=== PATIENT | female | born 1970 | race Caucasian/White ===

== ENCOUNTER 2018-09-04 18:11 | Emergency (ER) | payer SELFPAY ==
[~2018-09-04] VITALS: Ht 160 cm; Wt 72.7 kg
[~2018-09-04 18:11] MED LIST: NOCURR
[2018-09-04] MEDS ORDERED: KETOROLAC TROMETHAMINE 30 MG/ML VIAL IM ONE (21:45)
[2018-09-04] MEDS ORDERED: LIDOCAINE 5% TRANSDERMAL PATCH TD ONE (21:45)
[2018-09-04] MEDS ORDERED: CYCLOBENZAPRINE HCL 10 MG TABLET PO ONE (21:45)
[2018-09-04 22:50] VITALS: BP 122/65
== END 2018-09-04 22:51 | disposition home or self-care (01) ==
LOC: EMS 18:12
DX: S16.1XXA Strain of muscle, fascia and tendon at neck level, initial encounter (principal); S39.012A Strain of muscle, fascia and tendon of lower back, initial encounter; Z88.0 Allergy status to penicillin; V49.40XA Driver injured in collision with unspecified motor vehicles in traffic accident, initial encounter; Y93.89 Activity, other specified; Y92.488 Other paved roadways as the place of occurrence of the external cause; Y99.8 Other external cause status
CPT/HCPCS: 96372; 99283; J1885

== ENCOUNTER 2022-04-23 18:56 | Emergency (ER) | payer MEDICAID, OTHER ==
[~2022-04-23] VITALS: Ht 167.6 cm; Wt 81.0 kg
[2022-04-23 20:28] LABS: BASOPHILS % (AUTO) 0.1 % (0.0-2.0); EOSINOPHILS % (AUTO) 0.1 % (1.0-6.0); HEMATOCRIT 38.6 % (36-46); HEMOGLOBIN 12.4 g/dL (12.0-16.0); LYMPHOCYTES # (AUTO) 0.8 K/uL (1.0-4.8); MEAN CORPUSCULAR HEMOGLOBIN 27.5 pg (26.0-34.0); MEAN CORPUSCULAR HGB CONC 32.1 G/dL (31.0-37.0); MEAN CORPUSCULAR VOLUME 86 fL (80-100); MONOCYTES # (AUTO) 0.6 K/uL (0.1-1.0); MONOCYTES % (AUTO) 9.1 % (2.0-9.0); NEUTROPHILS # (AUTO) 4.9 K/uL (1.8-7.7); NEUTROPHILS % (AUTO) 77.7 % (40.0-70.0); PLATELET COUNT (AUTO) 173 K/uL (150-450); RED CELL DISTRIBUTION WIDTH 15.2 % (11.5-14.5)
[2022-04-23] MEDS: KETOROLAC TROMETHAMINE 30 MG/ML VIAL IVP ONE (20:32)
[2022-04-23] MEDS: MORPHINE SULFATE 4 MG/ML SYRINGE IVP ONE (20:33)
[2022-04-23] MEDS: ONDANSETRON HCL 4 MG/2 ML VIAL IVP ONE (20:33)
[2022-04-23] MEDS: SODIUM CHLORIDE 0.9% 1,000 ML IV ONE (20:33)
[2022-04-23 20:37] LABS: ANION GAP 3 mmol/L (8-16); CALCIUM, TOTAL 9.5 mg/dL (8.8-10.5); CARBON DIOXIDE 30 mmol/L (22-29); CHLORIDE 103 mmol/L (98-107); GLOMERULAR FILTR. RATE CALC > 60 mL/min (>60); GLUCOSE,RANDOM 121 mg/dL (70-110); POTASSIUM 4.1 mmol/L (3.5-5.1); SODIUM SERUM 136 mmol/L (136-145); UREA NITROGEN, BLOOD 14 mg/dL (7-18)
[2022-04-23 20:43] LABS: ALANINE AMINOTRANSFERASE 38 U/L (12-78); ALBUMIN 3.9 g/dL (3.4-5.0); ALKALINE PHOSPHATASE 60 U/L (46-116); ASPARTATE AMINOTRANSFERASE 22 U/L (15-37); BILIRUBIN,TOTAL 0.7 mg/dL (0.1-1.0); TOTAL PROTEIN, SERUM 7.9 g/dL (6.4-8.2)
[2022-04-23 22:07] VITALS: BP 136/72
[2022-04-23] MEDS ORDERED: IBUP-1554 PO (22:31)
[2022-04-23] MEDS ORDERED: ONDA-104 PO (22:31)
[2022-04-23] MEDS ORDERED: ACET-2080 PO (22:31)
== END 2022-04-23 22:32 | disposition home or self-care (01) ==
LOC: EMS 18:58
DX: R51.9 Headache, unspecified (principal); M62.838 Other muscle spasm; Z86.2 Personal history of diseases of the blood and blood-forming organs and certain disorders involving the immune mechanism; Z98.890 Other specified postprocedural states; Z88.0 Allergy status to penicillin
CPT/HCPCS: 99284; 96374; 96375; 96361; 80053; 84484; 85025; 36415; 93005; J1885; J2270; J2405; J7030